=== PATIENT | female | born 1955 | race Hispanic/Latino ===

== ENCOUNTER → 2024-06-01 | Outpatient (CLI) | payer OTHER | END | disposition home or self-care (01) | LOC: RAH 15:13 | PROVIDERS: ATTEND Internal Medicine | DX: Z12.31 Encounter for screening mammogram for malignant neoplasm of breast (principal); R92.333 Mammographic heterogeneous density, bilateral breasts; Z78.0 Asymptomatic menopausal state | CPT/HCPCS: 77067 ==

== ENCOUNTER 2025-10-31 07:22 | Emergency (ER) | payer MEDICARE, OTHER ==
[~2025-10-31] VITALS: Ht 154.9 cm; Wt 67.6 kg
--- NOTE | 2025-10-31 07:42 | ERN ---
General Chief Complaint: Neck Pain Stated Complaint: HEAD AND NECK PAIN Time Seen by MD: 07:26 Source: patient History of Present Illness Initial Comments Is a 70-year-old female coming in complaining of neck pain. Per patient she has had in the came for three days. She states that the discomfort arises for bilateral neck regions in his she also states that there is a swelling in the left side of her neck which is concerning her. Allergies: Coded Allergies: No Known Drug Allergies (Unverified Allergy, Unknown, 10/31/25) Past Medical History Past Medical History: Diabetes-Type II, High Cholesterol, Hypertension Past Surgical History: Hysterectomy ROS Dictation CONSTITUTIONAL: No chills, no fever, no weakness, no diaphoresis, no malaise. HEAD/FACE: No signs of trauma. EENT: No eye pain, no blurred vision, no tearing, no double vision, no ear pain, no ear discharge, no nose pain, no nasal congestion, no throat pain, no throat swelling, no mouth pain. RESPIRATORY: No cough, no orthopnea, no SOB, no stridor, no wheezing. CARDIOVASCULAR: No chest pain, no edema, no palpitations, no syncope. GASTROINTESTINAL/ABDOMINAL: No abdominal pain, no constipation, no diarrhea, no nausea, no vomiting. GENITOURINARY: No abnormal discharge, no dysuria, no frequent urination, no he maturia. No complaints of pain in the genitals. MUSCULOSKELETAL: no back pain, no gout, no joint pain, no joint swelling, mus chrissy pain, no muscle stiffness, neck pain. INTEGUMENTARY: No change in color, no change in hair/nails, no dryness, no lesion, no lumps, no rash. NEUROLOGICAL/PSYCH: No anxiety, not depressed, no emotional problem, no headache, no numbness, no pre-existing deficit, no history of seizures, no tremors, no weakness. HEMATOLOGIC/LYMPHATIC: Not anemic, no history of blood clots, no apparent bleeding, no bruising, glands not swollen. All Systems Negative, Except as Noted. Physical Exam Physical Exam Dictation VITAL SIGNS: Reviewed. GENERAL APPEARANCE: Alert, oriented x3, no acute distress, obese. HEAD AND FACE: Non-traumatic. EYES: PERRL, pink conjunctivas, eyelid no trauma, anterior chamber clear. EARS: Pinnas intact and no signs of trauma or erythema. Ear canals clear and no discharge. TMs no erythema. NOSE: No discharge, no bleeding. OROPHARYNX: Mouth normal, teeth no caries, tongue pink. Pharynx clear, no erythema. Tonsils no exudates, no abscesses noted. Mucous membrane moist. NECK: Supple, non-tender, no thyromegaly, no masses, no JVD, no bruits. BREAST: Deferred. CHEST: No tenderness, no crepitus, no paradoxical movement, no retractions. LUNGS: Clear, well-ventilated, symmetric, no rales, no wheezing, no rhonchi, no stridor, good breath sounds bilaterally. HEART: Regular rate, regular rhythm, no murmur, no gallops. VASCULAR: No peripheral edema. ABDOMEN: Soft, positive bowel sounds, nondistended, no guarding, nontender, no rebound, no masses no hepatomegaly, no splenomegaly, no Sorenson's sign, no hernias. RECTAL: Deferred. GENITAL: Deferred. NEUROLOGICAL: Normal speech, gross motor function intact, gross sensory function intact. MUSCULOSKELETAL: Neck nontender, full range of motion, back nontender, full range of motion. EXTREMITIES: Nontender, full range of motion. SKIN: Color pink, dry, no turgor, no rash, no lacerations, no abrasions, no contusions. LYMPHATICS: Deferred. Results Laboratory and Microbiology Lab and Micro Result Laboratory Tests Test 10/31/25 07:41 White Blood Count 8.4 K/uL (4.8-10.8) Red Blood Count 3.24 MIL/uL (4.00-5.50) L Hemoglobin 10.4 g/dL (12.0-16.0) L Hematocrit 31.9 % (36-48) L Mean Corpuscular Volume 98.5 fL (79-99) Mean Corpuscular Hemoglobin 32.1 pg (27.0-33.0) Mean Corpuscular Hemoglobin Concent 32.6 g/dL (32.0-36.0) Red Cell Distribution Width 13.7 % (11.0-15.5) Platelet Count 238 K/uL (130-400) Mean Platelet Volume 9.8 fL (7.5-10.5) Nucleated Red Blood Cells 0.0 % (0.0-0.19) Sodium Level 138 mmol/L (136-145) Potassium Level 4.8 mmol/L (3.5-5.1) Chloride Level 101 mmol/L (101-111) Carbon Dioxide Level 27 mmol/L (21-32) Blood Urea Nitrogen 16 mg/dL (7-18) Creatinine 1.0 mg/dL (0.5-1.0) Glomerular Filtration Rate Calc 61 mL/min (>90) Random Glucose 236 mg/dL (70-105) H Total Calcium 9.1 mg/dL (8.5-10.1) Troponin I High Sensitivity < 4 ng/L (4-50) L Labs Reviewed?: Yes EKG/XRAY/US/CT/MRI EKG Comment 10/31/2025 time 7:37 a.m. Ventricular rate 68 Sinus rhythm MD [address] wave elevation or depression CT Scan Comment [place] [address] [place] [address] IMAGING REPORT Signed PATIENT: CAMILO JOSE MR#: [id number] : 1955 SEX: F AGE: 70 LOCATION: [facility] ORDER 8 STATUS: REG REPORT#: [id number] SERVICE 7 REASON: neck pain , left side swelling ORDERING PHYSICIAN: ADEEL BARTON MD PROCEDURE: NKSOFTI WO - CT NECK SOFT TISS W/O CONTRAST EXAM: CT Neck Without IV contrast. CLINICAL HISTORY: Neck pain, left side swelling TECHNIQUE: Axial computed tomography images of the neck without intravenous contrast. Sagittal and coronal reformatted images were generated. CONTRAST: None. COMPARISON: None provided. FINDINGS: PHARYNX: The nasopharynx, oropharynx, and hypopharynx are unremarkable. No pharyngeal mucosal-based lesions. LARYNX: The larynx is unremarkable. Normal epiglottis. RETROPHARYNGEAL SPACE: No retropharyngeal soft tissue swelling or gas. SALIVARY GLANDS: The parotid, submandibular, and sublingual glands are unremarkable. LYMPH NODES: No lymphadenopathy is evident. THYROID: The thyroid gland is unremarkable. No nodule. BONES: No acute osseous abnormality. Degenerative cervical spondylosis. IMPRESSION: No acute abnormality. No obvious mass lesions. /[place] DICTATED BY: LUZ DIAZ Jr., MD DATE: 10/31/251101 ELECTRONICALLY SIGNED BY: LUZ DIAZ Jr., MD DATE: 10/31/251101 [facility] MDM: Differential diagnosis: Neck Strain, neck fracture, tension headaches Rationale: Tests considered and ordered secondary to shared decision making include: Previous outside records reviewed: Old ER visits. Risk of complication and/or morbidity or mortality of patient management: None Medications-Per medication reconciliation Need for hospitalization: Patient does not meet criteria for hospitalization. Need for emergency major/minor surgery: No Patient is a 70-year-old female coming in to be evaluated for neck pain. On physical exam that has tenderness to palpation of the bilateral trapezius muscle. CT was performed due to the inflammation of the left side of the neck to rule out an abscess or other malformation everything was negative. Patient felt much better with a headache cocktail. Patient is neurologically intact we will be discharged in stable condition. ED Course Orders Procedure Category Date Status Time Cbc Without LAB 10/31/25 Complete Differential 07:28 Basic Metabolic Panel LAB 10/31/25 Complete 07:28 12 Lead Ekg Tracing- EKG 10/31/25 Complete Technical 07:28 Troponin I High LAB 10/31/25 Complete Sensitivity 07:28 Ct Neck Soft Tiss W/O CT 10/31/25 Resulted Contrast 07:28 0.9%Nacl 1000ml (Ns PHA 10/31/25 Complete 1000ml) 07:30 Diphenhydramine Hcl PHA 10/31/25 Complete (Benadryl Inj) 09:30 Prochlorperazine PHA 10/31/25 Complete 10mg/2ml Inj 09:30 Current Medications Medications (Trade) Dose Ordered Sig/Bina Route PRN Reason Start Time Stop Time Status Last Admin Dose Admin Diphenhydramine HCl (BENAdryl INJ) 25 mg ONCE ONCE IV 10/31/25 09:30 10/31/25 09:31 DC 10/31/25 09:14 Prochlorperazine Edisylate (Compazine 10mg/ 2ml Inj) 10 mg ONCE ONCE IV 10/31/25 09:30 10/31/25 09:31 DC 10/31/25 09:14 Sodium Chloride 1,000 ml @ 0 mls/hr ONCE ONCE IV 10/31/25 07:30 10/31/25 07:32 DC 10/31/25 08:06 Vital Signs Date Time Temp Pulse Resp B/P (MAP) Pulse Ox O2 Delivery O2 Flow Rate FiO2 10/31/25 08:10 98.1 64 22 169/50 98 Room Air* 0 21 10/31/25 07:23 97.9 64 18 171/58 100 DX & DISP Disposition: Discharge Departure Impression: Primary Impression: Tension headache Condition: Stable Scripts Diclofenac Sodium (Voltaren Arthritis Pain) 1 % Gel..gram. 5 GM TP BID for 7 Days, #1 TUBE Prov: ADEEL BARTON MD 10/31/25 Additional Instructions: FOLLOW-UP WITH PRIMARY CARE PROVIDER IN 1 TO 2 DAYS. TAKE MEDICATIONS DIRECTED HERE IN THE EMERGENCY ROOM. OKAY TO CONTINUE HOME MEDICATIONS UNLESS OTHERWISE DISCUSSED DURING YOUR VISIT IN THE EMERGENCY ROOM TODAY. RETURN TO YOUR NEAREST EMERGENCY ROOM IF SYMPTOMS WORSEN OR IF THERE IS NO IMPROVEMENT. CALL 911 IF YOU NEED IMMEDIATE ASSISTANCE. TAKE TYLENOL [id number] NEEDED AND IF NO CONTRAINDICATIONS ARE PRESENT. INCREASE ORAL HYDRATION. A WOUND CULTURE OR URINE CULTURE WAS ORDERED HERE IN THE EMERGENCY ROOM DEPARTMENT PLEASE FOLLOW-UP WITH PRIMARY CARE PROVIDER AND ADVISE THEM TO GET REPORTS FROM OUR FACILITY. IF YOU HAD ANY RAFAT WRAP/SPLINTS THAT WERE APPLIED HERE, PLEASE DO NOT REMOVE THEM UNTIL YOU SEE YOUR PRIMARY CARE OR SPECIALTY. Referrals: Referrals: MARILUZ WHITTEN MD (PCP) Time of Disposition: 10:22 ADEEL BARTON MD Oct 31, 2025 07:42
--- NOTE | 2025-10-31 07:46 | EKG ---
[facility] Test Date: 2025-10-31 Test Time: 07:37:10 Pat Name: CAMILO JOSE Department: ED Room: Gender: F Heat Curer: [id number] : 1955 Requested By: ADEEL BARTON Order Number: [id number] Reading MD: Toribio Villa Measurements Intervals [place] Rate: 68 P: 14 WA: 150 QRS: -14 QRSD: 83 T: 211 QT: 424 QTc: 451 Interpretive Statements Sinus rhythm Probable LVH with secondary repol abnrm No previous ECG available for comparison Electronically Signed On 10-31-2025 13:16:59 [employer]PER[employer] by Toribio Villa Please click the below link to view image of tracing.
[2025-10-31 07:48] LABS: NUCLEATED RED BLOOD CELLS 0.0 % (0.0-0.19); PLATELET COUNT (AUTO) 238.0 K/uL (130-400); RED BLOOD CELL COUNT(AUTO) 3.24 MIL/uL (4.00-5.50); RED CELL DISTRIBUTION WIDTH 13.7 % (11.0-15.5); WHITE BLOOD COUNT (AUTO) 8.4 K/uL (4.8-10.8)
[2025-10-31] MEDS: 0.9%NACL 1000ML 1,000 ML IV ONE (08:06)
[2025-10-31 08:08] LABS: CREATININE 1.0 mg/dL (0.5-1.0); GLOMERULAR FILTR. RATE CALC 61.0 mL/min (>90); GLUCOSE,RANDOM 236.0 mg/dL (70-105); SODIUM SERUM 138.0 mmol/L (136-145); UREA NITROGEN, BLOOD 16.0 mg/dL (7-18)
[2025-10-31 08:10] VITALS: BP 169/50; PULSE 64; RESP 22; TEMP 98.1; O2SAT 98
[2025-10-31] MEDS: PROCHLORPERAZINE 10MG/2ML INJ IV ONE (09:14)
--- NOTE | 2025-10-31 10:02 | HMCIMG ---
EXAM: CT Neck Without IV contrast. CLINICAL HISTORY: Neck pain, left side swelling TECHNIQUE: Axial computed tomography images of the neck without intravenous contrast. Sagittal and coronal reformatted images were generated. CONTRAST: None. COMPARISON: None provided. FINDINGS: PHARYNX: The nasopharynx, oropharynx, and hypopharynx are unremarkable. No pharyngeal mucosal-based lesions. LARYNX: The larynx is unremarkable. Normal epiglottis. RETROPHARYNGEAL SPACE: No retropharyngeal soft tissue swelling or gas. SALIVARY GLANDS: The parotid, submandibular, and sublingual glands are unremarkable. LYMPH NODES: No lymphadenopathy is evident. THYROID: The thyroid gland is unremarkable. No nodule. BONES: No acute osseous abnormality. Degenerative cervical spondylosis. IMPRESSION: No acute abnormality. No obvious mass lesions. /[place]
== END 2025-10-31 10:41 | disposition home or self-care (01) ==
LOC: EDH 07:22
DX: G44.209 Tension-type headache, unspecified, not intractable (principal); M54.2 Cervicalgia; R22.1 Localized swelling, mass and lump, neck; E11.9 Type 2 diabetes mellitus without complications; E78.00 Pure hypercholesterolemia, unspecified; I10 Essential (primary) hypertension; Z90.710 Acquired absence of both cervix and uterus
CPT/HCPCS: 99285; 96374; 70490; 96361; 96375; 84484; 80048; 85027; 36415; 93005; J1200; J7030; J0780